=== PATIENT | male | born 1960 | race Caucasian/White ===

== ENCOUNTER → 2017-05-06 | Outpatient (CLI) | payer OTHER ==
--- NOTE | 2017-05-06 14:08 | PCVCIMAG ---
APPROVED REPORT Study performed: 05/06/2017 13:05:07 EXAM: Comprehensive 2D, Doppler, and color-flow Echocardiogram Patient Location: Echo lab Status: routine BSA: 2.44 HR: 65 bpmBP: 138/82 mmHg Rhythm: NSR Other Information Study Quality: Adequate Risk Factors: Cardiac Risk Factors: HTN, DM Indications Palpitations Chest Pain 2D Dimensions LVEF(%): 57.80 (>50%) IVSd: 11.05 (7-11mm) LVDd: 46.33 mm PWd: 11.00 (7-11mm)Ascending Ao: 39.53 (22-36mm) LVDs: 32.26 (25-40mm) Left Atrium: 38.66 (27-40mm) Aortic Root: 39.72 mm LV Single Plane 4CH: 52.95 % LV Single Plane 2CH: 62.21 %Cerrato's LVEF: 57.58 % Biplane EF: 58.0 % Volumes Left Atrial Volume (Systole) Single Plane 4CH: 84.77 mLSingle Plane 2CH: 91.60 mL LA ESV Index: 37.00 mL/m2 Aortic Valve AoV Peak Blake.: 1.42 m/s AO Peak Gr.: 8.04 mmHgLVOT Max P.34 mmHg LVOT Max V: 1.15 m/s Mitral Valve E/A Ratio: 0.8 MV Decel. Time: 301.02 ms MV E Max Blake.: 0.54 m/s MV A Blake.: 0.64 m/s IVRT: 138.41 ms Pulmonary Valve PV Peak Blake.: 0.91 m/sPV Peak Gr.: 3.29 mmHg Pulmonary Vein P Vein S: 0.27 m/sP Vein A: 0.34 m/s P Vein D: 0.36 m/sP Vein A Dur.: 145.3 msec P Vein S/D Ratio: 0.75 Tricuspid Valve TR Peak Blake.: 2.64 m/s TR Peak Gr.: 27.94 mmHg Left Ventricle The left ventricle is normal size. There is normal LV segmental wall motion. There is normal left ventricular wall thickness. Left ventricular systolic function is normal. The left ventricular ejection fraction is within the normal range. LVEF is 60%. Grade I - abnormal relaxation pattern. Right Ventricle The right ventricle is normal size. The right ventricular systolic function is normal. Atria Left atrium is mildly dilated. The right atrium size is normal. Aortic Valve The aortic valve is normal in structure. Trace aortic regurgitation. There is no aortic valvular stenosis. Mitral Valve The mitral valve is normal in structure. There is no mitral valve regurgitation noted. No evidence of mitral valve stenosis. Tricuspid Valve The tricuspid valve is normal in structure. Mild tricuspid regurgitation with PAP of 35 mmHg. Pulmonic Valve The pulmonary valve is normal in structure. Trace pulmonic regurgitation. Great Vessels The aortic root is mildly dilated to 4.0 cm. Ascending aorta mildly dilated to 4.0 cm. IVC is normal in size and collapses with >50% inspiration Pericardium There is no pericardial effusion. <Conclusion> The left ventricle is normal size. LVEF is 60%. The aortic valve is normal in structure. Trace aortic regurgitation. The mitral valve is normal in structure. The tricuspid valve is normal in structure. Mild tricuspid regurgitation with PAP of 35 mmHg. The pulmonary valve is normal in structure. Trace pulmonic regurgitation. The aortic root is mildly dilated to 4.0 cm. Ascending aorta mildly dilated to 4.0 cm.
== END | disposition home or self-care (01) ==
LOC: PCVCIMAG 12:57
PROVIDERS: ATTEND Internal Medicine
DX: I08.2 Rheumatic disorders of both aortic and tricuspid valves (principal); I10 Essential (primary) hypertension; E11.9 Type 2 diabetes mellitus without complications; E78.5 Hyperlipidemia, unspecified
CPT/HCPCS: 93306